=== PATIENT | male | born 1990 | race Caucasian/White ===

== ENCOUNTER 2018-01-10 21:17 | Emergency (ER) | payer MEDICAID ==
[~2018-01-10] VITALS: Ht 170.2 cm; Wt 110.0 kg
[2018-01-10 21:25] VITALS: BP 163/99
== END 2018-01-10 23:00 | disposition left against medical advice (07) ==
LOC: ER 22:00
DX: Z53.21 Procedure and treatment not carried out due to patient leaving prior to being seen by health care provider (principal)

== ENCOUNTER 2019-01-14 16:16 | Emergency (ER) | payer SELFPAY ==
[~2019-01-14] VITALS: Ht 170.2 cm; Wt 110.0 kg
[2019-01-14 16:35] VITALS: BP 119/98
== END 2019-01-14 20:22 | disposition left against medical advice (07) ==
LOC: ER 16:16
DX: S61.011A Laceration without foreign body of right thumb without damage to nail, initial encounter (principal); Z53.21 Procedure and treatment not carried out due to patient leaving prior to being seen by health care provider; W45.8XXA Other foreign body or object entering through skin, initial encounter; Y93.89 Activity, other specified; Y92.89 Other specified places as the place of occurrence of the external cause; Y99.8 Other external cause status